=== PATIENT | female | born 2005 | race Two or more races ===

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

== ENCOUNTER → 2024-10-29 | Outpatient (CLI) | payer OTHER ==
[2024-11-02 12:35] LABS: HCV QNT BY NAAT (IU/ML) Not Detected; HCV QNT BY NAAT (LOG IU/ML) Not Detected; HCV QNT BY NAAT INTERP Not Detected (Not Detected)
[2024-11-03 10:52] LABS: HIV 1,2 COMBO ANTIGEN/ANTIBODY Negative (Negative)
[2024-11-03 13:06] LABS: HEPATITIS B SURFACE ANTIGEN Negative (Negative)
[2024-11-09 12:03] LABS: HEPATITIS B SURFACE ANTIBODY <3.10 IU/L
== END ==
LOC: LAB 15:41 → LAB SHORT 15:41
PROVIDERS: Chiropractor
DX: Z20.9 Contact with and (suspected) exposure to unspecified communicable disease (principal)
CPT/HCPCS: 84460; 87340; 87389; 87522